=== PATIENT | female | born 1960 | race Caucasian/White ===

== ENCOUNTER 2020-04-06 14:52 | Emergency (ER) | payer OTHER ==
[~2020-04-06] VITALS: Ht 175.3 cm; Wt 90.7 kg
[~2020-04-06 14:52] MED LIST: FLAX SEED OIL1000 MG PO; LOTEMAX5 ML OPTH; MOTRIN IB200 MG PO; MULTIVITAMINS1 EAC7 PO; OMEGA-31000 MG PO; PERCOCET 7.5-31 EACH PO
--- NOTE | 2020-04-07 19:48 | EKG ---
[facility] [address] [facility] [place] [address] Signed Sinus tachycardia Right atrial enlargement Marked ST abnormality, possible inferior subendocardial injury Abnormal ECG No previous ECGs available Confirmed by LALO BERNARD MD ([id number]) on 04/07/2020 7:48:17 PM Electronically Signed By: LALO BERNARD MD 04/07/201947 PATIENT NAME: ANDREA NELSON Electrocardiogram DATE OF : 56 PHYSICIAN: LALO BERNARD MD REPORT #: [id number] REPORT IS CONFIDENTIAL AND NOT TO BE RELEASED WITHOUT AUTHORIZATION
== END 2020-04-06 18:15 | disposition home or self-care (01) ==
LOC: ED 14:52
DX: I10 Essential (primary) hypertension (principal)
CPT/HCPCS: 71045; 80053; 81001; 83735; 84443; 84484; 85025; 85379; 93005; 93010; 96360; 99284-25; J7030

== ENCOUNTER 2020-06-25 13:05 | Day surgery (SDC) | payer OTHER ==
[~2020-06-25] VITALS: Ht 175.3 cm; Wt 95.0 kg
[2020-06-25] MEDS ORDERED: HYDROCHLOROTH12.5 MG PO (13:28)
--- NOTE | 2020-06-25 17:24 | NUR ---
06/25/20 1724 Teodora Shaikh PATIENT ARRIVES TO PACU AWAKE AND TALKING WITH ME. SHE DENIES PAIN AND DENIES NAUSEA. DR SORTO PRESENTS TO THE BEDSIDE TO SPEAK WITH PATIENT AND HER QUESTIONS ARE ANSWERED. OXGYEN SATURATION REMAINS 100% ON 3L VIA NC AND THE NC IS REMOVED AT THIS TIME. PATIENT DENIES NEEDS.
--- NOTE | 2020-06-28 09:01 | OR ---
[facility] [address] [place], [place] [address] Signed DATE OF OPERATION: 06/25/2020 SURGEON: Federico Sorto MD PREOPERATIVE DIAGNOSIS: History of cecal resection for highly dysplastic villous adenoma in 2014. POSTOPERATIVE DIAGNOSES: 1. Scattered diverticula of sigmoid. 2. Sessile polyp at 35 cm (excised). PROCEDURE: Total colonoscopy to right ileocolic anastomosis and cold snare polypectomy x1. ANESTHESIA: Intravenous sedation, fentanyl 100 mcg and Versed 10 mg. INDICATION: This 59-year-old white woman is a patient of Dr. 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 She underwent a followup colonoscopy in 2016, which was normal. She is free of symptoms of bleeding, diarrhea, constipation, and remains in good health overall. She is admitted to undergo colonoscopy. She understands the risks of bleeding, infection, and perforation. FINDINGS: The prep was excellent. Complete colonoscopy was undertaken to the ileocolic anastomosis. There was a sessile polyp about a centimeter in size at 35 cm, which was excised with cold snare technique. The remaining colon was normal except for a few scattered diverticula. PROCEDURE IN DETAIL: The patient was brought to the endoscopy suite and placed in lateral decubitus position and given intravenous sedation to the point of slurred speech and nystagmus. Digital rectal examination was normal. An Olympus video colonoscope was passed in the rectum and manipulated throughout the colon ultimately intubating the right ileocolic anastomosis. There was no sign of abnormality there. The scope was withdrawn and examination throughout showed no sign of abnormality until approximately 35 cm from the anal verge where a sessile polyp was Electronically Signed By: FEDERICO SORTO MD 06/28/20 0901 PATIENT NAME: ANDREA NELSON OPERATIVE REPORT DATE OF : 56 REPORT #: [id number] PHYSICIAN: FEDERICO SORTO MD PCP: MANA RICHARDSON MD REPORT IS CONFIDENTIAL AND NOT TO BE RELEASED WITHOUT AUTHORIZATION [facility] [address] [place], [place] [address] Signed noted. This was excised with cold snare technique without problem. The specimen was passed for pathology. There was no untoward bleeding. The scope was further withdrawn. Retroflexed view of the rectum showed no abnormality. She did have several diverticula of the sigmoid and it was noted. The scope was removed. The patient was taken to the recovery room in good condition. CONCLUDING DIAGNOSES: 1. Diverticulosis (minimal). 2. Small polyp at 35 cm, excised. PLAN: Recommend repeat colonoscopy in 2 years, sooner if clinically indicated. She will return to the ongoing care of Dr. Richardson. MD JANET Gee/LAURAL /[id number] cc: Mana Richardson MD Copies: ~ Electronically Signed By: FEDERICO SORTO MD 06/28/20 0901 PATIENT NAME: ANDREA NELSON OPERATIVE REPORT DATE OF : 56 REPORT #: [id number] PHYSICIAN: FEDERICO SORTO MD PCP: MANA RICHARDSON MD REPORT IS CONFIDENTIAL AND NOT TO BE RELEASED WITHOUT AUTHORIZATION
--- NOTE | 2020-06-28 16:21 | PATH ---
[facility] [address] [place], [place] [address] Signed SPECIMEN(S): A COLON POLYP AT 35 CM SPECIMEN SOURCE: A. COLON POLYP AT 35 CM CLINICAL HISTORY: History of polyps, colon resection 2014. Post: Polyp x 1, diverticulosis. MICROSCOPIC DESCRIPTION: Histologic sections of all submitted blocks are examined by light microscopy. These findings, together with the gross examination, support the pathologic diagnosis. FINAL PATHOLOGIC DIAGNOSIS: Colon polyp at 35 cm: - Hyperplastic polyp (1 fragment). JVR:[id number] GROSS DESCRIPTION: The specimen, labeled "Andrea Bryant, 1," and designated on the requisition "colon polyp at 35 cm," is received in formalin and consists of one daigle soft tissue fragment that measures 0.6 cm in greatest dimension. The specimen is inked, bisected, and entirely submitted in cassette (A1). FB (under the direct supervision of a pathologist) The Gross Description was prepared using a voice recognition system. The report was reviewed for accuracy; however, sound-alike word errors, addition and/or deletions may occur. If there is any question about this report, please contact Client Services. PERFORMING LABORATORY: The technical component was performed by [facility], [address] [place] [id number] (Communications Professor: Denita Proctor MD; CLIA# [id number]). Professional interpretation was performed by [facility], [facility], [address] [place] [address]. Diagnostician: Osmani Coley MD Pathologist Electronically Signed 06/28/2020 Copies: PATIENT NAME: ANDREA BRYANT PATHOLOGY DATE OF : 56 REPORT #: [id number] PHYSICIAN: [facility] PCP: FLY ARCINIEGA MD REPORT IS CONFIDENTIAL AND NOT TO BE RELEASED WITHOUT AUTHORIZATION [address] [address] Signed ~ PATIENT NAME: ANDREA BRYANT PATHOLOGY DATE OF : 56 REPORT #: [id number] PHYSICIAN: [facility] PCP: FLY ARCINIEGA MD REPORT IS CONFIDENTIAL AND NOT TO BE RELEASED WITHOUT AUTHORIZATION
== END 2020-06-25 17:50 | disposition home or self-care (01) ==
LOC: OPS 13:05 → DS 13:05 → OPS 14:00
PROVIDERS: ATTEND Surgery
PROC: 0DBE8ZX Excision of Large Intestine, Via Natural or Artificial Opening Endoscopic, Diagnostic (ICD-10-PCS; principal; 2020-06-25 14:00)
DX: Z12.11 Encounter for screening for malignant neoplasm of colon (principal); K63.5 Polyp of colon; K57.30 Diverticulosis of large intestine without perforation or abscess without bleeding; I10 Essential (primary) hypertension; Z79.899 Other long term (current) drug therapy; Z86.010 Personal history of colon polyps; Z90.49 Acquired absence of other specified parts of digestive tract; Z98.0 Intestinal bypass and anastomosis status
CPT/HCPCS: 99153; G0500; J2250; J3010; J7121

== ENCOUNTER 2023-03-12 10:00 | Day surgery (SDC) | payer OTHER ==
[~2023-03-12] VITALS: Ht 175.3 cm; Wt 100.0 kg
[~2023-03-12 10:00] MED LIST changes: +HYDROCHLOROTH12.5 MG PO
[2023-03-12 10:13] VITALS: BP 152/78
[2023-03-12] MEDS ORDERED: LISINOPRIL10 MG PO (10:15)
--- NOTE | 2023-03-12 12:35 | NUR ---
03/12/23 1235 Clementine Harden 1231- PT ARRIVES TO PACU ALERT AND ORIENTED. PT REPORTS NO PAIN OR NAUSEA. PT WILL CLOSE HER EYES PERIODICALLY. RESP EVEN AND UNLABORED. OXYGEN SAT 100% ON 3L VIA CO2 NC.
[2023-03-12 12:57] VITALS: BP 115/65
--- NOTE | 2023-03-13 12:35 | OR ---
[facility] [address] [place], [place] [address] Signed DATE OF OPERATION: 03/12/2023 SURGEON: Federico Sorto MD PREOPERATIVE DIAGNOSES: 1. History of villous adenoma with atypia of cecum, status post resection 2014 (partial cecectomy laparoscopic). 2. Hyperplastic polyps 2019. POSTOPERATIVE DIAGNOSES: 1. Minimal diverticular change of left colon. 2. Two hyperplastic polyps of rectosigmoid. PROCEDURE: Total colonoscopy to ileocolic anastomosis and cold morcellation polypectomy x2. ANESTHESIA: Intravenous sedation; fentanyl 150 mcg and Versed 6 mg. INDICATION: This 62-year-old white woman is a patient of Dr. Richardson. In 2014, she underwent partial cecectomy by ne by laparoscopic approach for resection of a bulky villous adenoma of the cecum with atypia but no evidence of malignancy. She last underwent surveillance colonoscopy three years ago in 2019 where she was found to have hyperplastic polyp at 30 cm. She is free of bleeding, diarrhea, or constipation and has no family history of colon cancer. She is admitted at this time to undergo colonoscopy for surveillance. She understands the risk of bleeding, infection, and perforation. FINDINGS: The prep was good. Complete colonoscopy was undertaken to what likely was the ileocolic anastomosis. There was no evidence of cancer. She did have several diverticula of the sigmoid and left colon and very small polyps of the rectosigmoid which were likely hyperplastic. There were no other concerns noted. DESCRIPTION OF PROCEDURE: The patient was brought to the endoscopy suite and placed in the lateral decubitus position, given intravenous sedation a point of slurred speech and nystagmus with full cardiopulmonary monitoring. Digital rectal examination was normal. An Olympus video colonoscope was passed in the rectum and manipulated throughout the Electronically Signed By: FEDERICO SORTO MD 03/13/23 1235 PATIENT NAME: ANDREA NELSON OPERATIVE REPORT DATE OF : 56 REPORT #: [id number] PHYSICIAN: FEDERICO SORTO MD PCP: MANA RICHARDSON MD REPORT IS CONFIDENTIAL AND NOT TO BE RELEASED WITHOUT AUTHORIZATION [facility] [address] [place], [place] [address] Signed colon. Though the colon was somewhat redundant, the scope was passed as far as possible identifying what appeared to be an ileocolic anastomosis. The scope was then withdrawn from that point, showing no sign of abnormality other than a few scattered diverticula of the sigmoid and left colon. In the rectosigmoid, there were two small polyps adjacent to each other, both excised completely. There are likely hyperplastic polyps, though adenomas are still possible. The scope was withdrawn and removed. The patient was then taken to recovery room in good condition having suffered no complication. CONCLUDING DIAGNOSES: 1. Two probable hyperplastic polyps of the rectosigmoid, excised. 2. Minimal diverticulosis. PLAN: Recommend repeat colonoscopy in 5 to 7 years, sooner if symptoms should develop. She will return to the ongoing care of Dr. Richardson. MD JANET Gee/JOSELITO /[id number] cc: Mana Richardson MD Copies: ~ Electronically Signed By: FEDERICO SORTO MD 03/13/23 1235 PATIENT NAME: ANDREA NELSON OPERATIVE REPORT DATE OF : 56 REPORT #: [id number] PHYSICIAN: FEDERICO SORTO MD PCP: MANA RICHARDSON MD REPORT IS CONFIDENTIAL AND NOT TO BE RELEASED WITHOUT AUTHORIZATION
--- NOTE | 2023-03-16 11:57 | PATH ---
[facility] [address] [place], [place] [address] Signed SPECIMEN(S): A RECTAL POLYPS SPECIMEN SOURCE: A. RECTAL POLYPS CLINICAL HISTORY: Pre: Hx of polyps - hyperplastic and villous adenoma. Post: Rectal polyps x 2. FINAL PATHOLOGIC DIAGNOSIS: Rectal polyps: - Benign hyperplastic polyps (three fragments). JVR:[facility] MICROSCOPIC EXAMINATION: Histologic sections of all submitted blocks are examined by light microscopy. These findings, together with the gross examination, support the pathologic diagnosis. GROSS DESCRIPTION: The specimen, labeled and designated "Brown, S, " and designated on the requisition "colon rectum x 2 polypectomy," is received in formalin and consists of 4 daigle soft tissue fragments measuring 0.3 x 0.5 cm in greatest dimension. Specimens are submitted entirely in (A1). MMA (under the direct supervision of a pathologist) The Gross Description was prepared using a voice recognition system. The report was reviewed for accuracy; however, sound-alike word errors, addition and/or deletions may occur. If there is any question about this report, please contact Client Services. PERFORMING LABORATORY: Technical component was performed by [facility], [address] [place] [id number] (CLIA# [id number]). Professional interpretation was performed by [facility] - [facility], [address] [place] [id number] (CLIA#: [id number]). Diagnostician: Osmani Coley MD Pathologist Electronically Signed 03/16/2023 Copies: PATIENT NAME: ANDREA NELSON PATHOLOGY DATE OF : 56 REPORT #: [id number] PHYSICIAN: [facility] PCP: FLY ARCINIEGA MD REPORT IS CONFIDENTIAL AND NOT TO BE RELEASED WITHOUT AUTHORIZATION [address] [address] Signed ~ PATIENT NAME: ANDREA NELSON PATHOLOGY DATE OF : 56 REPORT #: [id number] PHYSICIAN: MARCELINO PATHOLOGY PCP: FLY ARCINIEGA MD REPORT IS CONFIDENTIAL AND NOT TO BE RELEASED WITHOUT AUTHORIZATION
== END 2023-03-12 13:04 | disposition home or self-care (01) ==
LOC: OPS 10:00 → DS 10:00 → OPS 11:15 → DS 13:00 → OPS 13:04
PROVIDERS: ATTEND Surgery
PROC: 0DBN8ZZ Excision of Sigmoid Colon, Via Natural or Artificial Opening Endoscopic (ICD-10-PCS; principal; 2023-03-12 11:15)
DX: Z12.11 Encounter for screening for malignant neoplasm of colon (principal); I10 Essential (primary) hypertension; Z90.710 Acquired absence of both cervix and uterus; G47.00 Insomnia, unspecified; K57.30 Diverticulosis of large intestine without perforation or abscess without bleeding; K63.5 Polyp of colon
CPT/HCPCS: 99153; G0500; J2250; J3010; J7121